=== PATIENT | male | born 1965 | race Caucasian/White ===

== ENCOUNTER → 2018-01-21 | Outpatient (CLI) | payer OTHER ==
[~2018-01-21] MED LIST: ALBU90I INH; Bactrim Ds Tab1 EACH PO; CEPH500 PO; HYDR1TAB94 PO; Percocet 5-3251 EACH PO; SULTRIDS PO; Ultram50 MG PO
== END | disposition home or self-care (01) ==
LOC: LAB 13:54
DX: L02.511 Cutaneous abscess of right hand (principal)
CPT/HCPCS: 87070; 87077; 87147; 87186; 87205

== ENCOUNTER 2018-04-16 18:44 | Emergency (ER) | END 2018-04-16 20:02 | disposition home or self-care (01) ==

== ENCOUNTER → 2019-02-16 | Outpatient (CLI) | payer OTHER ==
[~2019-02-16] MED LIST changes: +IBUP400 PO; +Vibramycin100 MG PO
== END | disposition home or self-care (01) ==
LOC: LAB 19:11 → LAB SHORT 19:11
DX: T14.8XXA Other injury of unspecified body region, initial encounter (principal); L08.9 Local infection of the skin and subcutaneous tissue, unspecified
CPT/HCPCS: 87070; 87075; 87077; 87147; 87186; 87205

== ENCOUNTER 2023-06-01 19:55 | Emergency (ER) | payer OTHER ==
[~2023-06-01] VITALS: Ht 175.3 cm; Wt 68.0 kg
[2023-06-01] MEDS ORDERED: GABA300 PO (22:03)
[2023-06-01] MEDS ORDERED: DULO30 PO (22:04)
[2023-06-01] MEDS ORDERED: BUSPIRONE HCL30 M1 PO (22:04)
[2023-06-01 22:15] VITALS: BP 152/106
== END 2023-06-01 22:31 | disposition home or self-care (01) ==
LOC: ER 19:55
DX: K40.90 Unilateral inguinal hernia, without obstruction or gangrene, not specified as recurrent (principal); F17.210 Nicotine dependence, cigarettes, uncomplicated; Z86.14 Personal history of Methicillin resistant Staphylococcus aureus infection
CPT/HCPCS: 99283

== ENCOUNTER 2023-12-01 18:35 | Emergency (ER) | payer OTHER ==
[~2023-12-01] VITALS: Ht 175.3 cm; Wt 68.0 kg
[~2023-12-01 18:35] MED LIST changes: +BUSPIRONE HCL30 M1 PO; +DULO30 PO; +GABA300 PO
[2023-12-01 18:49] VITALS: BP 142/93
== END 2023-12-01 21:18 | disposition home or self-care (01) ==
LOC: ER 18:35
DX: S61.411A Laceration without foreign body of right hand, initial encounter (principal); F17.210 Nicotine dependence, cigarettes, uncomplicated; Z86.14 Personal history of Methicillin resistant Staphylococcus aureus infection; Z79.899 Other long term (current) drug therapy; W26.8XXA Contact with other sharp object(s), not elsewhere classified, initial encounter; Y93.89 Activity, other specified
CPT/HCPCS: 12001; 90471; 90714; 99282-25

== ENCOUNTER 2023-12-13 23:27 | Emergency (ER) | payer OTHER ==
[~2023-12-13] VITALS: Ht 175.3 cm; Wt 68.0 kg
[2023-12-14] MEDS ORDERED: CEPH500 PO (00:01)
[2023-12-14] MEDS ORDERED: BACTRIM DS TAB1 EAC1 PO (00:01)
[2023-12-14 00:30] VITALS: BP 147/68
== END 2023-12-14 00:40 | disposition home or self-care (01) ==
LOC: ER 23:27
DX: S61.411D Laceration without foreign body of right hand, subsequent encounter (principal); F17.210 Nicotine dependence, cigarettes, uncomplicated
CPT/HCPCS: 99281; A9270